=== PATIENT | male | born 1945 | race Caucasian/White ===

== ENCOUNTER → 2020-03-09 | Outpatient (CLI) | payer MEDICARE ==
[2020-03-09 17:09] LABS: Protein, Total 6.4 g/dL (6.2-8.2)
[2020-03-09 19:07] LABS: Hemoglobin A1C 5.7 % (4.0-6.0)
[2020-03-10 13:43] LABS: Albumin 3.79 g/dL (3.80-4.90); Gamma Globulin 0.82 g/dL (0.70-1.50)
== END | disposition home or self-care (01) ==
LOC: LABWHC1 10:51
PROVIDERS: ATTEND Psychiatry & Neurology Neurology
DX: G62.9 Polyneuropathy, unspecified (principal); R73.9 Hyperglycemia, unspecified
CPT/HCPCS: 36415; 82607; 83036; 84165; 86334

== ENCOUNTER → 2023-05-13 | Outpatient (CLI) | payer MEDICARE ==
[2023-05-13 16:03] LABS: Basophils # (A) 0.03 X 10*3/uL (0.00-0.10); Basophils % (A) 0.5 %; Eosinophils % (A) 1.5 %; HCT 43.6 % (39.6-50.0); Lymphocytes # (A) 0.91 X 10*3/uL (0.90-5.00); MCH 31.2 pg (27.0-32.0); MCHC 32.1 d/dL (32.0-37.0); MCV 97.1 FL (80.0-97.0); Mean Platelet Volume 10.8 FL (9.5-12.2); Monocytes # (A) 0.42 X 10*3/uL (0.20-1.00); Monocytes % (A) 6.5 %; NRBC Per 100 WBC 0 X 10*3/uL (0.00-0.01); Platelet Count 141 X 10*3/uL (140-440); RBC 4.49 X 10*6/uL (4.40-5.60); RBC Morphology Normal (Normal); RDW 12.6 % (11.5-14.5); WBC 6.49 X 10*3/uL (4.50-10.00)
[2023-05-13 16:06] LABS: Blood Urea Nitrogen 21.1 mg/dL (9.0-27.0); Carbon Dioxide 27.6 mmol/L (21.6-31.8); Chloride 104 mmol/L (96-109); Potassium 4.6 mmol/L (3.5-5.5); Sodium 142 mmol/L (135-145)
== END | disposition home or self-care (01) ==
LOC: LABPAT 11:26
PROVIDERS: ATTEND Internal Medicine
DX: Z01.812 Encounter for preprocedural laboratory examination (principal); R94.39 Abnormal result of other cardiovascular function study
CPT/HCPCS: 36415; 80051; 82565; 84520; 85025

== ENCOUNTER 2023-05-24 11:46 | Day surgery (SDC) | payer MEDICARE ==
[2023-05-17 10:56] VITALS: BMI 26.4
[~2023-05-24 11:46] MED LIST: ALPRAZolam 0.25 MG TAB PO PRN; ALPRAZolam 0.5 MG TAB PO PRN; ASPIRIN 325 MG TAB PO STA; ATORVASTATIN 80 MG TAB PO STA; HEPARIN SODIUM,PORCINE (1 ML) 2,500 UNIT in SODIUM CHLORIDE 0.9% 250 ML IRRIGATION PRN; HEPARIN SODIUM,PORCINE 10,000 UNIT in SODIUM CHLORIDE 0.9% 1,000 ML IRRIGATION PRN; NITROGLYCERIN SL TABS 0.4 MG TAB SUBLINGUAL PRN; SODIUM CHLORIDE 0.9% 1,000 ML in EMPTY BAG 1 BAG IV SCH
[2023-05-24] MEDS ORDERED: SODIUM CHLORIDE 0.9% 1,000 ML IV ONE (12:05)
[2023-05-24 12:28] VITALS: RESP 16
[2023-05-24] MEDS ORDERED: LIDOCAINE 1% INJ 10MG/ML (20 ML MDV) ONE (13:36)
[2023-05-24] MEDS ORDERED: VERAPAMIL 2.5 MG/ML 2 ML AMP ONE (13:36)
[2023-05-24] MEDS ORDERED: HEPARIN SODIUM 1,000 UN/ML (10ML VL) ONE ×2 (13:36→15:06)
[2023-05-24] MEDS ORDERED: fentaNYL (PF) 50 MCG/ML 2 ML AMP ONE (13:37)
[2023-05-24] MEDS ORDERED: MIDAZOLAM 2 MG/2 ML VIAL IVP ONE (13:42)
[2023-05-24] MEDS ORDERED: fentaNYL (PF) 50 MCG/ML 2 ML AMP IVP ONE (13:42)
[2023-05-24] MEDS ORDERED: LIDOCAINE 1% INJ 10MG/ML (5 ML VIAL-PF) SQ ONE (13:44)
[2023-05-24] MEDS ORDERED: VERAPAMIL SYRINGE (5 MG/10 ML) INTRAARTER ONE (13:45)
[2023-05-24] MEDS: HEPARIN SODIUM 1,000 UN/ML (10ML VL) IV ONE ×4 (13:49→14:49)
[2023-05-24] MEDS ORDERED: CLOPIDOGREL 75 MG TAB ONE (14:11)
[2023-05-24] MEDS ORDERED: CLOPIDOGREL 75 MG TAB PO ONE (14:16)
[2023-05-24] MEDS ORDERED: NITROGLYCERIN 1000MCG/10ML SYRINGE INTRACORON ONE (14:43)
[2023-05-24] MEDS ORDERED: HEPARIN SODIUM 1,000 UN/ML (10ML VL) IV ONE (15:08)
[2023-05-24] MEDS ORDERED: IOPAMIDOL-370 200ML BTL INJ ONE (15:09)
[2023-05-24] MEDS ORDERED: PANTOPRAZOLE 40 MG TABLET PO PRN (15:13)
[2023-05-24] MEDS ORDERED: ZOLPIDEM 5 MG TAB PO PRN (15:14)
[2023-05-24] MEDS ORDERED: MAG HYDROX/AL HYDROX/SIMETH 30 ML CUP PO PRN (15:14)
[2023-05-24] MEDS ORDERED: ATROPINE SULFATE 0.1 MG/ML 10ML SYRINGE IV PRN (15:14)
[2023-05-24] MEDS ORDERED: RX INFO: IV CONTRAST WAS GIVEN 1 EACH MISC MISCELLANE PRN (15:14)
[2023-05-24] MEDS ORDERED: SODIUM CHLORIDE 0.9% 1,000 ML IV SCH (15:20)
[2023-05-24 20:42] VITALS: TEMP 98.1
--- NOTE | 2023-05-24 21:52 | P.PRCINT ---
Percutaneous Coronary Int. - Percutaneous Coronary Intervention Percutaneous Coronary Intervention: PROCEDURES PERFORMED: Left heart catheterization, bilateral coronary angiography, ultrasound guided arterial access, PCI ostial RCA with a 3.5 x 12mm Xience LEONARDO, PCI distal RCA with a 2.25 x 15mm Xience LEONARDO, iFR LAD, iFR circumflex/OM INDICATION: Abnormal stress test with inferior ischemia CONSENT:I have discussed the risks, benefits and alternative therapies for the above-mentioned procedure and for both sedation/analgesia as well as necessary blood product administration, if indicated, as they pertain to this patient. The patient has indicated understanding and acceptance of the risks and procedures discussed. PROCEDURE: After the risks, benefits and alternatives of the above mentioned procedure explained in detail with the patient, informed consent was obtained. Patient was taken to the catheterization lab and prepped and draped in usual fashion. Ultrasound guidance was used to assess for arterial access. 1% lidocaine was used to anesthetize the right radial artery. A 6-Afghan sheath was placed in the right radial artery using modified Seldinger technique and ultrasound guidance. Left coronary angiography was performed with a 5-Afghan JL 3.5 catheter and right coronary angiography was performed with a 5-Afghan JR5 catheter in various views. There was dampening noted of the RCA with the 5- Afghan catheter. A 5-Afghan FR5 catheter was inserted into the left ventricle and pressure measurements were obtained. There was ischemia noted in the inferior wall which appeared related to the RCA disease however decision made to perform iFR of the LAD and circumflex/OM. Heparin was given for ACT greater than 250. Through the diagnostic catheter, 0.014 pressure wire was advanced in the left main and normalize. It was then advanced into the mid circumflex with the proximal circumflex lesion not having significant gradient however in the OM 2 branch iFR was performed and was abnormal at 0.78. Next the pressure wire was advanced back to left main and normalized again. It was then advanced 1 cm distal to the mid LAD lesion and iFR was performed and abnormal at 0.79. With pullback, there was no significant gradient noted across the left main. Patient did have multivessel disease however given prior lobectomy and risk factors and degree of disease, felt best treated percutaneously. The decision was made to perform PCI of the RCA. A 6-Afghan AL 1.0 guide was used to engage the RCA. A 0.014 BMW wire was advanced into the mid RCA however not able to make a turn. A 0.014 whisper wire was able to navigate turn. Initial balloon angioplasty was performed with a 1.5 x 12 mm balloon of the distal LAD. Balloon angioplasty was performed of the proximal lesion as well. Next balloon angioplasty was performed of the proximal lesion with a 2.5 noncompliant balloon and then a 3.0 noncompliant balloon. Next a 2.25 x 12mm compliant balloon was advanced and deployed in the distal RCA. With the help of a Guideliner a 2.25 x 15 mm Xience LEONARDO was able to be advanced into the distal RCA and deployed. There was some haziness beyond the stent which may be related to overlap versus small dissection however unable to pass IVUS easily or other equipment and with JUAN 3 flow and therefore treated medically. The proximal RCA was predilated with a 3.5 noncompliant balloon. Next a 3.5 x 12 mm Xience LEONARDO was placed at the ostium of the RCA. The stent balloon was withdrawn 6 mm and used to flare the ostium of the stent. Final angiograms were performed. Preintervention there is 90% stenosis with JUAN 3 flow and postintervention there is less than 10% stenosis with JUAN 3 flow The right radial sheath was removed and a TR band was placed with hemostasis achieved. The patient tolerated the procedure well. Patient was transported back to the post catheterization holding area in stable condition. Conscious Sedation: Patient was monitored under the direct supervision of myself for conscious sedation using Versed and fentanyl for a total duration of 81 minutes HEMODYNAMICS: Ao: 133/76 LV: 131/8, LVEDP 15 SELECTIVE CORONARY ARTERIOGRAPHY: LEFT MAIN: The left main is a large caliber vessel which trifurcates into the LAD, ramus and circumflex. There is a distal left main 40% stenosis. LEFT ANTERIOR DESCENDING CORONARY ARTERY: LAD is a large caliber vessel which wraps around to the apex. There is a proximal LAD focal napkin ring 80% stenosis. Diagonal 1 has an ostial 90% stenosis. Otherwise there are mild luminal irregularities of the LAD. There are small collaterals to the RCA. RAMUS INTERMEDIUS: The ramus is moderate caliber with mild luminal ir regularities. LEFT CIRCUMFLEX CORONARY ARTERY: Left circumflex is a moderate to large caliber vessel. There is a proximal circumflex 50-60% stenosis and then circumflex gives off an OM1 and OM 2 branch. OM1 has a 90% proximal stenosis. RIGHT CORONARY ARTERY: The right coronary artery is a large caliber vessel which gives off a PDA and PLV branch and is the dominant vessel. There is an ostial 70% stenosis followed by diffuse 20-30% proximal to mid RCA stenosis with severe tortuosity. There is a more focal distal 90% RCA stenosis. FINAL IMPRESSION: 1. CAD as described above including 40% left main stenosis, proximal LAD 80% stenosis, diagonal 190% stenosis, proximal circumflex 50-60% stenosis, OM1 90% stenosis, ostial RCA 70% stenosis, distal RCA and 90% stenosis 2. Normal left sided filling pressures 3. S/p PCI ostial RCA with a 3.5 x 12mm Xience LEONARDO, PCI distal RCA with a 2.25 x 15mm Xience LEONARDO PLAN: 1. Aggressive risk factor modification per most recent ACC/AHA guidelines. 2. Continue dual antiplatelets with aspirin and Plavix for 6 months. 3. Stage PCI of OM1/LAD.
[2023-05-25 04:23] VITALS: PULSE 85
--- NOTE | 2023-05-25 07:47 | P.DS ---
Providers Attending physician: Deshawn Muniz DO Consults: 05/24/23 15:14 Consult Physician Routine Consulting Provider: [facility] Consult Reason/Comments: Post Interventional patient Do you want consulting provider notified?: Already Contacted Primary care physician: [facility] Course: The patient is a 81-year-old gentleman who underwent yesterday a heart catheterization and PCI of the ostial right coronary artery by Dr. Muniz. May [id number] The patient was seen and evaluated this morning he is asymptomatic from the cardiovascular standpoint of view and he is also hemodynamically stable. I am going to discharge the patient on dual antiplatelet therapy using aspirin and low-dose as well as Plavix. Beside that he is already on a statin with the Crestor. The patient is going to be seen as a follow-up by Dr. Bravo in the office in a week from now. The right radial site is soft and nontender with a grade pulse. Plan - Discharge Summary Discharge Rx Participant: No New Discharge Prescriptions: New Clopidogrel [Plavix] 75 mg PO DAILY #90 tab Continue Montelukast [Singulair] 10 mg PO DAILY Metoprolol Succinate [Metoprolol Succinate ER] 25 mg PO DAILY Pantoprazole [Protonix] 40 mg PO DAILY PRN PRN Reason: Hiatal Hernia DULoxetine HCL [Cymbalta] 30 mg PO DAILY Rosuvastatin [Crestor] 10 mg PO DAILY Aspirin [Adult Low Dose Aspirin EC] 81 mg PO DAILY Discharge Medication List Aspirin [Adult Low Dose Aspirin EC] 81 mg PO DAILY 05/17/23 [History] DULoxetine HCL [Cymbalta] 30 mg PO DAILY 05/17/23 [History] Metoprolol Succinate [Metoprolol Succinate ER] 25 mg PO DAILY 05/17/23 [History] Montelukast [Singulair] 10 mg PO DAILY 05/17/23 [History] Pantoprazole [Protonix] 40 mg PO DAILY PRN 05/17/23 [History] Rosuvastatin [Crestor] 10 mg PO DAILY 05/17/23 [History] Clopidogrel [Plavix] 75 mg PO DAILY #90 tab 05/25/23 [Rx] Follow up Appointment(s)/Referral(s): Deshawn Muniz DO [STAFF PHYSICIAN] - 05/31/23 2:00 pm (FOLLOW UP APPOINTMENT IS May AT 2:00 PM)
[2023-05-25] MEDS ORDERED: MONTELUKAST 10 MG TAB PO SCH (09:00)
[2023-05-25] MEDS ORDERED: CLOPIDOGREL 75 MG TAB PO SCH (09:00)
[2023-05-25] MEDS ORDERED: METOPROLOL SUCCINATE (ER) 25 MG TAB.ER.24H PO SCH (09:00)
[2023-05-25] MEDS ORDERED: DULoxetine HCL 30 MG CAPSULE.DR PO SCH (09:00)
[2023-05-25] MEDS ORDERED: ATORVASTATIN 20 MG TAB PO SCH (09:00)
[2023-05-25] MEDS ORDERED: ASPIRIN 81 MG PO SCH (09:00)
[2023-05-25 11:28] LABS: Basophils % (A) 0 %; Eosinophils # (A) 0.1 k/uL (0-0.7); Eosinophils % (A) 2 %; HGB 13.5 gm/dL (13.0-17.5); Lymphocytes # (A) 0.8 k/uL (1.0-4.8); Lymphocytes % (A) 14 %; MCH 31.3 pg (25.0-35.0); MCHC 32.2 g/dL (31.0-37.0); MCV 97.2 fL (80.0-100.0); Mean Platelet Volume 7.8; Monocytes # (A) 0.4 k/uL (0-1.0); Monocytes % (A) 6 %; Neutrophils # (A) 4.4 k/uL (1.3-7.7); Neutrophils % (A) 76 %; Platelet Count 127 k/uL (150-450); RBC 4.32 m/uL (4.30-5.90); RDW 12.6 % (11.5-15.5); WBC 5.7 k/uL (3.8-10.6)
[2023-05-25 11:45] LABS: African American GFR (CKD) >90 (>60 ml/min/1.73 sqM); Anion Gap 4 mmol/L; Blood Urea Nitrogen 13 mg/dL (9-20); Calcium 8.7 mg/dL (8.4-10.2); Carbon Dioxide 31 mmol/L (22-30); Chloride 102 mmol/L (98-107); Glucose 87 mg/dL (74-99); Non-African American GFR(CKD) 79 (>60 ml/min/1.73 sqM); Potassium 4.6 mmol/L (3.5-5.1); Sodium 137 mmol/L (137-145)
[2023-05-25 12:30] VITALS: BP 116/69
== END 2023-05-25 11:09 | disposition home or self-care (01) ==
LOC: CATHCVL 11:46 → 3SCARD 15:04 → CATHCVL 05-25 11:09
PROVIDERS: ATTEND Internal Medicine
DX: I25.10 Atherosclerotic heart disease of native coronary artery without angina pectoris (principal); I10 Essential (primary) hypertension; E78.5 Hyperlipidemia, unspecified; F17.210 Nicotine dependence, cigarettes, uncomplicated; Z82.49 Family history of ischemic heart disease and other diseases of the circulatory system; Z79.82 Long term (current) use of aspirin; Z79.899 Other long term (current) drug therapy
CPT/HCPCS: 93458; 93799; 80048; 85025; C9600; C1769 ×4; C1887 ×2; C1894; C1725 ×4; C1874 ×2; J2250; J2001; J3010; J1644; Q9967; J2305

== ENCOUNTER 2023-06-19 10:03 | Day surgery (SDC) | payer MEDICARE ==
[2023-06-18 11:02] VITALS: BMI 26.4
[~2023-06-19 10:03] MED LIST changes: +ASPIRIN 325 MG TAB PO ONE; -ASPIRIN 325 MG TAB PO STA; -ATORVASTATIN 80 MG TAB PO STA; -HEPARIN SODIUM,PORCINE (1 ML) 2,500 UNIT in SODIUM CHLORIDE 0.9% 250 ML IRRIGATION PRN; -HEPARIN SODIUM,PORCINE 10,000 UNIT in SODIUM CHLORIDE 0.9% 1,000 ML IRRIGATION PRN; -SODIUM CHLORIDE 0.9% 1,000 ML in EMPTY BAG 1 BAG IV SCH
[2023-06-19] MEDS ORDERED: SODIUM CHLORIDE 0.9% 1,000 ML IV ONE ×2 (10:32→14:46)
[2023-06-19 10:43] VITALS: TEMP 97.8
[2023-06-19 10:45] LABS: Basophils % (A) 0 %; Eosinophils # (A) 0.2 k/uL (0-0.7); Eosinophils % (A) 3 %; HCT 44.9 % (39.0-53.0); HGB 14.7 gm/dL (13.0-17.5); Lymphocytes # (A) 0.9 k/uL (1.0-4.8); Lymphocytes % (A) 12 %; MCH 31.9 pg (25.0-35.0); MCHC 32.9 g/dL (31.0-37.0); MCV 97.2 fL (80.0-100.0); Monocytes # (A) 0.4 k/uL (0-1.0); Monocytes % (A) 6 %; Neutrophils # (A) 6.1 k/uL (1.3-7.7); Neutrophils % (A) 78 %; Platelet Count 146 k/uL (150-450); RBC 4.62 m/uL (4.30-5.90); RDW 12.9 % (11.5-15.5); WBC 7.8 k/uL (3.8-10.6)
[2023-06-19] MEDS: SODIUM CHLORIDE 0.9% 1,000 ML in EMPTY BAG 1 BAG IV SCH ×2 (10:45→18:55)
[2023-06-19] MEDS ORDERED: HEPARIN SODIUM 1,000 UN/ML (10ML VL) ONE (13:29)
[2023-06-19] MEDS ORDERED: VERAPAMIL 2.5 MG/ML 2 ML AMP ONE (13:29)
[2023-06-19] MEDS ORDERED: fentaNYL (PF) 50 MCG/ML 2 ML AMP ONE (13:29)
[2023-06-19] MEDS ORDERED: fentaNYL (PF) 50 MCG/ML 2 ML AMP IVP ONE (13:48)
[2023-06-19] MEDS ORDERED: MIDAZOLAM 2 MG/2 ML VIAL IVP ONE (13:48)
[2023-06-19] MEDS ORDERED: LIDOCAINE 2% (PF) 20 MG/ML 5 ML VIAL SQ ONE (13:51)
[2023-06-19] MEDS ORDERED: VERAPAMIL SYRINGE (5 MG/10 ML) INTRAARTER ONE (13:53)
[2023-06-19] MEDS: HEPARIN SODIUM 1,000 UN/ML (10ML VL) IV ONE ×3 (13:59→14:17)
[2023-06-19] MEDS: NITROGLYCERIN 1000MCG/10ML SYRINGE INTRACORON ONE ×2 (14:17→14:38)
[2023-06-19] MEDS ORDERED: IOPAMIDOL-370 100ML BTL INJ ONE ×2 (14:24→14:46)
[2023-06-19] MEDS ORDERED: PANTOPRAZOLE 40 MG TABLET PO PRN (14:57)
[2023-06-19] MEDS ORDERED: ATROPINE SULFATE 0.1 MG/ML 10ML SYRINGE IV PRN (14:58)
[2023-06-19] MEDS ORDERED: MAG HYDROX/AL HYDROX/SIMETH 30 ML CUP PO PRN (14:58)
[2023-06-19] MEDS ORDERED: RX INFO: IV CONTRAST WAS GIVEN 1 EACH MISC MISCELLANE PRN (14:58)
[2023-06-19] MEDS ORDERED: ZOLPIDEM 5 MG TAB PO PRN (14:58)
[2023-06-19] MEDS ORDERED: SODIUM CHLORIDE 0.9% 1,000 ML in EMPTY BAG 1 BAG IV SCH (15:00)
--- NOTE | 2023-06-19 17:04 | P.PRCINT ---
Percutaneous Coronary Int. - Percutaneous Coronary Intervention Percutaneous Coronary Intervention: PROCEDURES PERFORMED: Left coronary angiography, ultrasound guided arterial access, PCI proximal LAD with a 3.0 x 8mm Xience LEONARDO, PCI OM1 with a 2.5 x 23mm Xience LEONARDO, IVUS LAD INDICATION: Stage PCI with abnormal iFR CONSENT:I have discussed the risks, benefits and alternative therapies for the above-mentioned procedure and for both sedation/analgesia as well as necessary blood product administration, if indicated, as they pertain to this patient. The patient has indicated understanding and acceptance of the risks and procedures discussed. PROCEDURE: After the risks, benefits and alternatives of the above mentioned procedure explained in detail with the patient, informed consent was obtained. Patient was taken to the catheterization lab and prepped and draped in usual fashion. Ultrasound guidance was used to assess for arterial access. 1% lidocaine was used to anesthetize the right radial artery. A 6-Italian sheath was placed in the right radial artery using modified Seldinger technique and ultrasound guidance. The decision was made to perform PCI of the LAD and OM1. Heparin was given for ACT greater than 250. A 6-Italian CLS 4.0 guide catheter was used to engage the left main. A 0.014 BMW wire was advanced into the distal OM1 branch. Predilation was performed with a 2.25 x 12 mm balloon. Next a 2.5 x 23 mm Xience LEONARDO was placed in the proximal OM1. Final angiograms were performed. Preintervention there was 85% OM1 stenosis with JUAN 3 flow and postintervention there was less than 10% stenosis with JUAN 3 flow. Next a second 0.014 BMW wire was advanced into the distal LAD. Predilation was performed with a 2.25 x 8 mm noncompliant balloon. Next intravascular ultrasound was performed which showed diffuse disease of the LAD, minimal luminal area of the left main of 4.3 mm, reference LAD vessel diameter 3.0 mm. Next a 3.0 x 8 mm Xience LEONARDO was placed in the proximal LAD. Repeat intravascular ultrasound showed excellent result with no dissection. The wire was pulled and final angiograms were performed. Preintervention there was 80% proximal LAD stenosis with JUAN 3 flow and postintervention there was less than 10% stenosis with JUAN 3 flow. The diagonal was felt best treated medically. The right radial sheath was removed and a TR band was placed with hemostasis achieved. The patient tolerated the procedure well. Patient was transported back to the post catheterization holding area in stable condition. Conscious Sedation: Patient was monitored under the direct supervision of myself for conscious sedation using Versed and fentanyl for a total duration of 81 minutes HEMODYNAMICS: Ao: 130/76 SELECTIVE CORONARY ARTERIOGRAPHY: LEFT MAIN: The left main is a large caliber vessel which trifurcates into the LAD, ramus and circumflex. There is a distal left main 40-50% stenosis. LEFT ANTERIOR DESCENDING CORONARY ARTERY: LAD is a large caliber vessel which wraps around to the apex. There is a proximal LAD focal napkin ring 80% stenosis. Diagonal 1 has an ostial 90% stenosis. Otherwise there are mild luminal irregularities of the LAD. There are small collaterals to the RCA. RAMUS INTERMEDIUS: The ramus is moderate caliber with mild luminal irregularities. LEFT CIRCUMFLEX CORONARY ARTERY: Left circumflex is a moderate to large caliber vessel. There is a proximal circumflex 50-60% stenosis and then circumflex gives off an OM1 and OM 2 branch. OM1 has a 85% proximal stenosis. RIGHT CORONARY ARTERY: The right coronary artery was not imaged FINAL IMPRESSION: 1. CAD as described above including 40-50% left main stenosis, proximal LAD 80% stenosis, diagonal 1 90% stenosis, proximal circumflex 50-60% stenosis, OM1 85% stenosis 2. S/p PCI proximal LAD with a 3.0 x 8mm Xience LEONARDO, PCI OM1 with a 2.5 x 23mm Xience LEONARDO 3. Abnormal IVUS left main with minimal luminal area of 4.3mm2 PLAN: 1. Aggressive risk factor modification per most recent ACC/AHA guidelines. 2. Continue dual antiplatelets with aspirin and Plavix for 6 months. 3. If has more progressive symptoms may consider further functional assessment of left main however previous iFR and current IVUS with discrepancy
[2023-06-20] MEDS ORDERED: DULoxetine HCL 30 MG CAPSULE.DR PO SCH (09:00)
[2023-06-20] MEDS ORDERED: ASPIRIN 81 MG PO SCH (09:00)
[2023-06-20] MEDS ORDERED: MONTELUKAST 10 MG TAB PO SCH (09:00)
[2023-06-20] MEDS ORDERED: CLOPIDOGREL 75 MG TAB PO SCH (09:00)
[2023-06-20] MEDS ORDERED: ATORVASTATIN 20 MG TAB PO SCH (09:00)
[2023-06-20] MEDS ORDERED: METOPROLOL SUCCINATE (ER) 25 MG TAB.ER.24H PO SCH (09:00)
[2023-06-20 15:42] VITALS: BP 130/73; PULSE 60
[2023-06-20 15:46] VITALS: RESP 15
== END 2023-06-19 21:50 | disposition home or self-care (01) ==
LOC: CATHCVL 10:03 → 6NMEDSUR 14:45 → CATHCVL 21:50
PROVIDERS: ATTEND Internal Medicine
DX: I25.10 Atherosclerotic heart disease of native coronary artery without angina pectoris (principal); I10 Essential (primary) hypertension; F17.210 Nicotine dependence, cigarettes, uncomplicated; E78.5 Hyperlipidemia, unspecified; Z82.49 Family history of ischemic heart disease and other diseases of the circulatory system; Z79.899 Other long term (current) drug therapy
CPT/HCPCS: 92978; 85025; C9600; C1769 ×3; C1887; C1894; C1725 ×2; C1753; C1874 ×2; J2250; J3010; J1644; Q9967; J2001; J2305